=== PATIENT | female | born 1995 | race Caucasian/White ===

== ENCOUNTER 2021-11-11 08:59 | Emergency (ER) | payer OTHER ==
--- NOTE | 2021-11-11 09:52 | ED Physician Documentation ---
PD HPI UPPER EXT INJURY - Stated complaint Stated Complaint: R SHOULDER PX - Chief complaint Chief Complaint: Ext Problem - History obtained from History obtained from: Patient - History of Present Illness Location: Right, Shoulder Type of injury: Other (did exertional exercise including pushups/etc few days ago with her PRT testing and does lifting/carrying on shoulders as part of her assingment in [employer] (plane chocks, other heavy equipment). No abrupt pain, but started yesterday, significantly increased overnight. Pain posterior scapular area.). No: Fall, Twist Where injury occurred: Work Timing - onset: Today, Yesterday Timing - details: Gradual onset, Still present Improved by: Rest Worsened by: Moving, Palpating (posterior shoulder/scapular area mainly) Associated symptoms: No: Weakness, Numbness, Swelling Contributing factors: Work related. No: Prior ortho surgery Similar symptoms before: Has not had sx before Recently seen: Not recently seen Review of Systems Constitutional: denies: Fever, Chills Nose: denies: Rhinorrhea / runny nose, Congestion Throat: denies: Sore throat Cardiac: denies: Chest pain / pressure Respiratory: denies: Cough Neurologic: denies: Focal weakness, Numbness PD PAST MEDICAL HISTORY - Past Medical History Past Medical History: No - Past Surgical History Past Surgical History: No - Present Medications Home Medications: Ambulatory Orders Medication Instructions Recorded Confirmed Ibuprofen [Motrin] 600 mg PO TID PRN #20 tab 11/11/21 - Allergies Allergies/Adverse Reactions: Allergies Allergy/AdvReac Type Severity Reaction Status Date / Time amoxicillin Allergy Hives Verified 11/11/21 09:06 Penicillins Allergy Hives Verified 11/11/21 09:06 - Social History Does the pt smoke?: No Smoking Status: Never smoker Does the pt drink ETOH?: Yes Does the pt have substance abuse?: No - Immunizations Immunizations are current?: Yes - POLST Patient has POLST: No PD ED PE NORMAL - Vitals Vital signs reviewed: Yes - General General: Alert and oriented X 3, Well developed/nourished, Other (appears uncomfrotable as is guarding ROM of the right shoulder. ) - Neck Neck: Supple, no meningeal sign, No bony TTP - Cardiac Cardiac: RRR, No murmur - Respiratory Respiratory: Clear bilaterally - Derm Derm: Normal color, Warm and dry - Extremities Extremities: Other (right posterior shoulder tender in infrascapular area mostly. Minimal in suprascapular area. Not tender in clavicle nor AC joint. ROM elicits pain with abduction/adduction mostly. Some with flexion, not extension. Minimal pain with internal/external rotation.) - Neuro Neuro: Alert and oriented X 3, No motor deficit, No sensory deficit, Normal speech Results - Vitals Vitals: Vital Signs - 24 hr 11/11/21 11:37 Temperature 37.0 C Heart Rate 58 L Respiratory 18 Rate Blood Pressure 126/87 H O2 Saturation 100 Oxygen O2 Source Room air - Rads (name of study) right shoulder Radiology: Prelim report reviewed (no fractures nor subluxations. ), See rad report PD MEDICAL DECISION MAKING - ED course Complexity details: considered differential (seems more scapular muscles strain tendonitis, and not rotator cuff itself. Though location of pain could be some part of infraspinatus muscle origin. ), d/w patient Departure - Departure Disposition: 01 Home, Self Care Clinical Impression: Right shoulder tendonitis Condition: Stable Record reviewed to determine appropriate education?: Yes Instructions: ED Sprain Shoulder Follow-Up: [facility] [Provider Group] [facility] [Provider Group] Prescriptions: Ibuprofen [Motrin] 600 mg PO TID PRN #20 tab PRN Reason: Pain Comments: The x-ray of your shoulder appears normal which was mostly expected. Your injury would sound more soft tissue of the muscles tendons and the joint capsule. Your exam does not sound like a torn rotator cuff nor labral tear in the joint. I think it just sounds like tendinitis of the shoulder muscles from overuse and inflammation. Use the sling for comfort and reduce motion for the next 2 or 3 days. However do gentle range of motion 3-4 times daily for 10 or 15 minutes just to keep from stiffening of the shoulder joint. Ibuprofen 3 times daily with food for the next week. [facility] or [facility] if not improved well over the next 2 to 3 days and resolved by 4 to 5 days. Forms: Activity restrictions Discharge Date/Time: 11/11/21 12:07
[2021-11-11] MEDS ORDERED: IBUPROFEN 600 MG TABLET PO STA (10:13)
[2021-11-11] MEDS ORDERED: ACETAMINOPHEN 500 MG TABLET PO STA (10:13)
--- NOTE | 2021-11-11 10:33 | XRAY Report ---
PROCEDURE: Shoulder 3 View RT INDICATIONS: shoulder pain after excess use TECHNIQUE: 3 views of the shoulder were acquired. COMPARISON: None. FINDINGS: Bones: No fractures or dislocations. No suspicious bony lesions. Visualized ribs appear intact. Soft tissues: No suspicious soft tissue calcifications. IMPRESSION: No acute shoulder fracture or dislocation. No gross soft tissue abnormalities. Reviewed by: Modesto Espinoza MD on 11/11/2021 10:31 AM PDT Approved by: Modesto Espinoza MD on 11/11/2021 10:31 AM PDT Station ID: [id number]
[2021-11-11 11:38] VITALS: BP 126/87
== END 2021-11-11 12:07 | disposition home or self-care (01) ==
LOC: ED 08:59
DX: M75.81 Other shoulder lesions, right shoulder (principal)
CPT/HCPCS: 73030; 99282; 99283; A9270